=== PATIENT | female | born 1990 | race Caucasian/White ===

== ENCOUNTER 2017-06-05 14:42 | Observation (INO) ==
[2017-06-05] MEDS ORDERED: 0.9 % Sodium Chloride 1,000 ML IVC ONE (15:12)
[2017-06-05] MEDS ORDERED: Ondansetron 4 MG/2 ML VIAL IVP ONE (15:12)
[2017-06-05] MEDS ORDERED: *HR* HYDROmorphone (PF) 1 MG/ML SYRINGE IVP ONE (15:12)
--- NOTE | 2017-06-05 15:15 | Emergency Department Note ---
Disposition Clinical Impression: Nausea & vomiting Qualifiers: Vomiting type: unspecified Vomiting Intractability: unspecified Qualified Code( s): R11.2 - Nausea with vomiting, unspecified UTI (urinary tract infection) Qualifiers: Urinary tract infection type: acute cystitis Hematuria presence: with hematuria Qualified Code(s): N30.01 - Acute cystitis with hematuria Disposition: Admitted As Inpatient Condition: Good Referrals: NONE,PCP [Primary Care Provider] - Forms: ED Satisfaction Letter Time of Disposition: 17:09 Female Urogenital HPI - General Chief complaint: ED Urogenital-Female Stated complaint: poss. kidney stones Time Seen by Provider: 06/05/17 15:11 Source: patient Mode of arrival: ambulatory Limitations: no limitations Nursing Notes Reviewed: Yes Vital Signs Reviewed: Yes - History of Present Illness HPI Narrative: 26-year-old female who was seen here last PM for kidney stones comes in with right flank pain. Patient was noted to have a 2 mm renal stone yesterday. She does have some blood in her urine. States that she's had increasing pain thinks she may be passing the stones. Had nausea vomiting. Pt Subjective Complaint: other (Right flank pain hematuria) Onset (ago): day(s) Radiation: R flank Severity: moderate Quality: aching Duration: constant Improves with: none Worsens with: none Urinary Symptoms: hematuria : no - Related Data Home Medications Medication Instructions Recorded Confirmed Medroxyprogesterone Acetate 10 mg PO DAILY 06/05/17 06/05/17 [Provera] Paroxetine HCl [Paxil] 20 mg PO DAILY 06/05/17 06/05/17 lamoTRIgine [Lamotrigine] 200 mg PO QPM 06/05/17 06/05/17 Previous Rx's Medication Instructions Recorded Naproxen [Naprosyn] 500 mg PO BID PRN #14 tablet 06/04/17 Ondansetron HCl [Zofran] 4 mg PO QID PRN #14 tablet 06/04/17 Allergies Allergy/AdvReac Type Severity Reaction Status Date / Time Cefprozil [From Cefzil] Allergy Rash Verified 06/04/17 13:59 All systems ED: reviewed and negative except as stated. Constitutional: Denies: fever, chills, weakness, weight change Eyes: Denies: eye pain, eye discharge, vision change ENT ED: Denies: ear pain, throat pain, dental pain, hearing loss, epistaxis, congestion, dysphagia Cardiovascular: Denies: chest pain, palpitations, dyspnea on exertion, edema, syncope Respiratory: Denies: cough, dyspnea, wheezes, hemoptysis, stridor Gastrointestinal: Reports: abdominal pain. Denies: nausea, vomiting, diarrhea, constipation, hematemesis, melena, hematochezia Genitourinary: Denies: dysuria, frequency, hematuria, discharge Musculoskeletal: Reports: back pain. 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 - Social History Smoking Status: Current every day smoker Smokeless Tobacco Status: No Alcohol use: Reports: none Drug use: Reports: none Physical Exam - General Limitations: no limitations General appearance: alert - Head Head exam: atraumatic, normocephalic, normal inspection - Eye Eye exam: Present: normal appearance, PERRL, EOMI - ENT ENT exam: normal exam, normal oropharynx, mucous membranes moist - Neck Neck exam: Present: normal inspection, full ROM, trachea midline - Chest Chest inspection: Present: normal inspection, symmetric chest wall rise - Respiratory Respiratory exam: Present: normal lung sounds bilaterally - Cardiovascular Cardiovascular exam: Present: regular rate, normal rhythm, normal heart sounds - Abdominal Exam Abdominal exam: Present: soft, Non-Tender. Absent: tenderness, distention, guarding, rebound, rigidity - Extremities Exam Extremities exam: Present: normal inspection, full ROM. Absent: tenderness, pedal edema - Expanded Lower Extremity Exam Neurovascular/Tendon exam: Absent: motor deficit, sensory deficit, tendon deficit - Back Exam Back exam: Present: normal inspection - Neurological Exam Neurological exam: Present: alert, oriented X3 - Psychiatric Psychiatric exam: Present: normal affect, normal mood - Skin Skin exam: Present: warm, dry, intact, normal color Course - Reevaluation(s) Reevaluation #1: 26-year-old with a history kidney stones or comes in with right flank pain. Patient was seen last PM and actually had a CT scan that showed nephrocalcinosis with the largest on being 2 mm nonobstructing. She also has some red and white cells in her urine. She is in a situation will she is not able to get her medications filled. She's had persistent nausea vomiting. She will require admission. Time: 17:09 - Consultations Consultation #1: Discussed with , will see in consult. Time: 17:08 Consultation #2: Discussed with Kadie Garcia who accepts patient for admission. Time: 17:31 Vital Signs Temperature 98.6 F 06/05/17 15:02 Pulse Rate 86 06/05/17 15:02 Respiratory Rate 16 06/05/17 15:02 Blood Pressure 125/91 06/05/17 15:02 O2 Sat by Pulse Oximetry 100 06/05/17 15:02 Temperature 98.6 F 06/05/17 15:02 Pulse Rate 86 06/05/17 15:02 Respiratory Rate 16 06/05/17 15:02 Blood Pressure 125/91 06/05/17 15:02 O2 Sat by Pulse Oximetry 100 06/05/17 15:02 Oxygen Delivery Oxygen Delivery Room Air Urogenital-Female - Lab Data Lab Results 06/05/17 06/05/17 Range/Units 13:00 13:00 Urine Color [place] A (Yellow) Urine Clarity Turbid A (Clear) Urine pH 6.0 (5.0-8.0) pH Units Ur Specific [place] 1.027 H (1.010-1.025) Urine Protein 30 H (Neg-Trace) mg/dL Urine Glucose (UA) Normal (Normal) mg/dL Urine Ketones Trace H (Negative) mg/dL Urine Blood Large H (Negative) Urine Nitrite Negative (Negative) Urine Bilirubin Moderate H (Negative) Urine Urobilinogen 4.0 H (Normal) mg/dL Ur Leukocyte Esterase Moderate H (Negative) Urine Microscopic RBC TNTC H (0-3) per hpf Urine Microscopic WBC 30-50 H (0-3) per hpf Ur Squamous Epith Cells Many H (None-Few) per lpf Calcium Oxalate Crystal Present Urine Bacteria Few (None-Few) per hpf Hyaline Casts Test Not Performed Ur Culture Indicated? YES A (NO) Urine Test Negative (Negative)
[2017-06-05 15:16] LABS: Bilirubin,Urine Moderate (Negative); Blood,Urine Large (Negative); Clarity,Urine Turbid (Clear); Glucose,Urine (UA) Normal (Normal); Ketones,Urine Trace mg/dL (Negative); Leukocyte Esterase,Urine Moderate (Negative); Nitrite,Urine Negative (Negative); Protein,Urine 30 mg/dL (Neg-Trace); Specific Gravity,Urine 1.027 (1.010-1.025)
[2017-06-05 15:19] LABS: Bacteria,Urine Few per hpf (None-Few); Squamous Epithelial Cell,Urine Many per lpf (None-Few); WBC,Urine 30-50 per hpf (0-3)
[2017-06-05 15:23] LABS: Color,Urine Orange (Yellow)
[2017-06-05 15:30] LABS: RBC,Urine TNTC per hpf (0-3)
[2017-06-05 15:31] LABS: Calcium Oxalate Crystals,Urine Present
[2017-06-05] MEDS ORDERED: Sulfamethoxazole/Trimeth DS 1 EACH TABLET PO ONE (16:47)
[2017-06-05] MEDS ORDERED: Levofloxacin 500 MG/100 ML 500 MG/100 ML BAG IVPB ONE (17:10)
[2017-06-05 18:07] LABS: Basophils # 0.1 K/mcL (0.0-0.2); Eosinophils # 0.3 K/mcL (0.0-0.6); Eosinophils % 4.5 %; Hematocrit 44.5 % (35.3-44.9); Hemoglobin 14.7 g/dL (11.5-15.4); Immature Granulocytes % 1.9 % (0-4); Lymphocytes # 2.8 K/mcL (0.6-4.6); Lymphocytes % 37.7 %; Mean Corpuscular Volume 84.8 fL (83.0-100.0); Mean Platelet Volume 10.8 fL (9.4-12.4); Monocytes # 0.6 K/mcL (0.0-1.3); Monocytes % 7.6 %; Neutrophils # 3.5 K/mcL (1.6-8.9); Platelet Count 239 K/mcL (140-400); Red Blood Count 5.25 M/mcL (3.82-4.97); Red Cell Distribution Width 13.1 % (11.5-14.5); Segmented Neutrophils % 47.3 %
[2017-06-05 18:21] LABS: BUN/Creatinine Ratio 8 (6-26); Blood Urea Nitrogen 6 mg/dL (7-20); Calcium 8.8 mg/dL (8.6-10.8); Carbon Dioxide 18 mEq/L (19-29); Chloride 113 mEq/L (98-109); Glucose 76 mg/dL (70-99); Osmolality,Calculated 288 (280-300); Potassium 4.3 mEq/L (3.5-4.5); Sodium 141 mEq/L (136-145); eGFR For African Americans > 60 (> 60); eGFR For Non-African Americans > 60 (> 60)
[2017-06-05 18:25] LABS: Platelet Estimate Normal (Normal)
[2017-06-05] MEDS ORDERED: Acetaminophen 325 MG TABLET PO PRN (20:18)
[2017-06-05] MEDS: *HR* Morphine 2 MG/ML SYRINGE IVP PRN ×2 (20:43→23:44)
[2017-06-05] MEDS: Ondansetron 4 MG/2 ML VIAL IVP PRN (20:43)
[2017-06-05] MEDS: 0.9 % Sodium Chloride 1,000 ML IVC SCH (21:14)
--- NOTE | 2017-06-05 22:33 | Internal Med History&Physical ---
Date of Encounter: 06/06/17 Time of Encounter: 22:31 Assessment and Plan (1) Renal colic on right side Current visit: Yes Status: Acute (2) Nausea & vomiting Current visit: Yes Status: Acute Qualifiers: Vomiting type: unspecified Vomiting Intractability: unspecified Qualified Code(s): R11.2 - Nausea with vomiting, unspecified (3) UTI (urinary tract infection) Current visit: Yes Status: Acute Qualifiers: Urinary tract infection type: acute cystitis Hematuria presence: with hematuria Qualified Code(s): N30.01 - Acute cystitis with hematuria Internal Medicine - H&P: HPI Chief complaint: Abdominal pain Admitted From: Home Plans for Post Hospital Care: Home History of present illness: Ms. Reeves is a 26-year-old female who was seen here last PM for kidney stones comes in with right flank pain. On noncontrast CT abdomen Patient was noted to have multiple renal his toenails especially a 2 mm nonobstructing renal stone yesterday. She does have some blood her urine. States that her pain is increasing thinks she may be passing the stones. Had nausea vomiting or no fever or law hematuria or any other symptoms. Past Med Surg Social Fam HX - Past Medical History Medical history: no medical history Psychiatric history: anxiety, depression - Past Surgical History Surgical History: appendectomy, cholecystectomy - Social History Smoking Status: Current every day smoker Smokeless Tobacco Status: No Alcohol use: none Drug use: none - Family History Mother Hx Family Endocrine Disorder: Yes (dm) Internal Medicine - H&P: Meds Naproxen [Naprosyn] 500 mg PO BID PRN #14 tablet 06/04/17 [Rx] Ondansetron HCl [Zofran] 4 mg PO QID PRN #14 tablet 06/04/17 [Rx] Medroxyprogesterone Acetate [Provera] 10 mg PO DAILY 06/05/17 [History] Paroxetine HCl [Paxil] 20 mg PO DAILY 06/05/17 [History] lamoTRIgine [Lamotrigine] 200 mg PO QPM 06/05/17 [History] 3 Allergy/AdvReac Type Severity Reaction Status Date / Time Cefprozil [From Cefzil] Allergy Rash Verified 06/04/17 13:59 All Systems PM: A 10-system review of systems was performed and is negative for pertinent findings except as documented above in the HPI. - Constitutional Constitutional: no chills, no fever(s), no night sweats - EENT Eyes: no change in vision, no discharge, no pain, no photophobia Ears: no ear discharge, no ear pain, no tinnitus Nose, mouth and throat: no dysphagia, no nasal discharge, no neck pain, no sore throat - Cardiovascular Cardiovascular ROS IM: no chest pain, no diaphoresis, no dyspnea, no lightheadedness, no palpitations, no syncope - Respiratory Respiratory: no cough, no dyspnea, no wheezing, no excessive phlegm production - Gastrointestinal Gastrointestinal: abdominal pain, nausea, vomiting, no diarrhea, no hematemesis , no hematochezia, no melena - Genitourinary Genitourinary: hematuria, no change in urinary stream, no dysuria, no flank pain - Musculoskeletal Musculoskeletal ROS IM: no numbness, no tingling - Integumentary Integumentary IM: no rash, no unusual bruising - Neurological Neurological ROS: no confusion, no convulsions, no focal weakness, no numbness, no tingling, no tremor(s) - Hematologic/Lymphatic Hematologic/Lymphatic: no easy bruising - Constitutional Vitals: Temp Pulse Resp BP Pulse Ox 98.1 F 73 15 103/65 99 06/05/17 19:20 06/05/17 19:20 06/05/17 19:20 06/05/17 19:20 06/05/17 19:20 - Head Head exam: Present: atraumatic, normocephalic - Eye Eye exam: Present: PERRL, conjuntiva pink, sclera anicteric Pupils: Present: PERRL - Neck Neck exam general surgery: Present: supple, trachea midline. Absent: lymphadenopathy - Respiratory Respiratory exam: Present: CTAB. Absent: accessory muscle use, rales, rhonchi, wheezes - Cardiovascular Cardiovascular exam: Present: RRR, +S1, +S2. Absent: diastolic murmur, gallop, rubs, systolic murmur - GI/Abdominal GI/Abdominal exam: Present: normal bowel sounds, soft, no peritoneal signs. Absent: distended, tenderness - Extremities Exam Extremities exam: Present: warm, radial pulses palpable and symmetrical. Absent : calf tenderness, cyanotic, pedal edema - Neurological Exam Neurological exam: Present: CN II-XII intact, oriented X3, no focal deficits. Absent: pronater drift, facial droop, speech deficit - Skin Skin exam: Present: dry, intact Internal Med - H&P Results - Labs CBC & Chem 7: 06/05/17 17:59 06/05/17 17:59 Labs: Short CBC 06/05/17 Range/Units 17:59 WBC 7.3 (4.3-11.1) K/mcL Hgb 14.7 (11.5-15.4) g/dL Hct 44.5 (35.3-44.9) % Plt Count 239 (140-400) K/mcL Neutrophils # 3.5 (1.6-8.9) K/mcL BMP 06/05/17 17:59 Sodium 141 Potassium 4.3 Chloride 113 H Carbon Dioxide 18 L BUN 6 L Creatinine 0.73 Glucose 76 Calcium 8.8
[2017-06-06] MEDS: 0.9 % Sodium Chloride 1,000 ML IVC SCH ×3 (03:56→16:55)
[2017-06-06] MEDS: Ondansetron 4 MG/2 ML VIAL IVP PRN ×4 (03:58→20:30)
[2017-06-06] MEDS: *HR* Morphine 2 MG/ML SYRINGE IVP PRN (03:58)
--- NOTE | 2017-06-06 08:10 | Internal Med Progress Note ---
Date of Encounter: 06/06/17 Time of Encounter: 07:45 - Assessment and plan (1) Renal colic on right side Current Visit: Yes Status: Acute Assessment and plan: Pt still reports pain to R flank and RLQ, will stop morphine and start Dilaudid due to increased duration of pain relief. Will transition to NSAIDs as pt improves. Urology consulted by ED physician. continue IVF and pain control (2) Nausea & vomiting Current Visit: Yes Status: Acute Assessment and plan: Pt still reports nausea, no vomiting. Continue IVF, monitor labs, antiemetics. Qualifiers: Vomiting type: unspecified Vomiting Intractability: unspecified Qualified Code(s): R11.2 - Nausea with vomiting, unspecified (3) UTI (urinary tract infection) Current Visit: Yes Status: Acute Assessment and plan: Urine turbid with large amount of blood, moderate leukocyte esterase, 30-50 WBC , Calcium oxalate crystal, few bacteria. Culture pending. Pt has received 1 dose of Levaquin IV and one dose of Bactrim in ER. Urology consulted, appreciate their consultation and recommendations. Continue IVF, pain control, and antibiotics. Qualifiers: Urinary tract infection type: acute cystitis Hematuria presence: with hematuria Qualified Code(s): N30.01 - Acute cystitis with hematuria (4) Tobacco use Current Visit: Yes Status: Acute Assessment and plan: Pt has requested a nicotine patch, states that she does not want to stop smoking. Smoking cessation discussed, 3-10 minutes. (5) DVT prophylaxis Current Visit: Yes Status: Acute Assessment and plan: Pt is ambulatory, up to chair and up ad betsy, JAN lópez - Time Spent With Patient less than 15 minutes - Subjective Interval history: Pt was seen and assessed at 0745. She reports continued RLQ and R flank pain, states that morphine is not really helping and that dilaudid didn't really work much better, but lasted longer. She has requested a nicotine patch, but does not want to stop smoking on discharge. Reports no po intake for last 3 days due to pain and nausea, will continue to treat and encourage po intake. - Constitutional Vitals: Temp Pulse Resp BP Pulse Ox 97.4 F L 68 14 107/71 94 06/06/17 07:02 06/06/17 07:02 06/06/17 07:02 06/06/17 07:06/06/17 07:02 General appearance: Present: cooperative, mild distress, A&O X 3, pleasant, answers questions appropriately - Head Head exam: Present: atraumatic, normal inspection, normocephalic - Eye Eye exam: Present: normal appearance, conjuntiva pink, sclera anicteric - Neck Neck exam general surgery: Present: normal inspection, supple, trachea midline. Absent: lymphadenopathy, tenderness - Respiratory Respiratory exam: Present: CTAB. Absent: accessory muscle use, rales, rhonchi, wheezes - Cardiovascular Cardiovascular exam: Present: RRR, +S1, +S2. Absent: diastolic murmur, gallop, rubs, systolic murmur - GI/Abdominal GI/Abdominal exam: Present: normal bowel sounds, soft, no peritoneal signs. Absent: distended, hernia, hepatomegaly, tenderness - Extremities Exam Extremities exam: Present: normal inspection, warm, radial pulses palpable and symmetrical. Absent: calf tenderness, cyanotic, pedal edema - Neurological Exam Neurological exam: Present: alert, oriented X3, no focal deficits. Absent: facial droop, speech deficit - Skin Skin exam: Present: dry, intact, normal color, warm. Absent: rash Internal Medicine: Result - Labs CBC & Chem 7: 06/05/17 17:59 06/05/17 17:59 Labs: Short CBC 06/05/17 Range/Units 17:59 WBC 7.3 (4.3-11.1) K/mcL Hgb 14.7 (11.5-15.4) g/dL Hct 44.5 (35.3-44.9) % Plt Count 239 (140-400) K/mcL Neutrophils # 3.5 (1.6-8.9) K/mcL BMP 06/05/17 17:59 Sodium 141 Potassium 4.3 Chloride 113 H Carbon Dioxide 18 L BUN 6 L Creatinine 0.73 Glucose 76 Calcium 8.8 Consult Discharge Plan - Plan Referrals: NONE,PCP [Primary Care Provider] -
[2017-06-06] MEDS: *HR* HYDROmorphone (PF) 1 MG/ML SYRINGE IVP PRN ×2 (08:45→14:03)
[2017-06-06] MEDS ORDERED: Levofloxacin 500 MG/100 ML 500 MG/100 ML BAG IVPB SCH ×2 (09:00→18:00)
--- NOTE | 2017-06-06 09:32 | Urology - Consult Note ---
Date of Encounter: 06/06/17 Time of Encounter: 09:30 - Assessment and Plan (1) Kidney stones Current Visit: Yes Status: Acute Assessment and plan: Patient stones are not causing her pain at this time. No surgical treatment needed for these. Patient can follow-up with me in 3-4 weeks for discussion of long-term management of recurrent small stones (2) UTI (urinary tract infection) Current Visit: Yes Status: Acute Assessment and plan: Agree with broad-spectrum antibiotics until culture returns. This most likely is the cause of her pain. Qualifiers: Urinary tract infection type: acute cystitis Hematuria presence: with hematuria Qualified Code(s): N30.01 - Acute cystitis with hematuria Urology CN:HPI Consult date: 06/06/17 Reason for consult Urology: Other (kidney stones) Requesting physician: Kierra Machado History of present illness: Rocío is a 26-year-old female with a history of recent trip to the emergency Department secondary to severe bilateral flank discomfort. Patient was found on CT scan to have bilateral punctate renal stones without any ureteral stone. CT scan was personally reviewed by me which I agree with the findings. Patient was found to have a dirty UA. Past Med Surg Social Fam HX - Past Medical History Medical history: no medical history Psychiatric history: anxiety, depression - Past Surgical History Surgical History: appendectomy, cholecystectomy - Social History Smoking Status: Current every day smoker Smokeless Tobacco Status: No Alcohol use: none Drug use: none - Family History Mother Hx Family Endocrine Disorder: Yes (dm) Medications and Allergies Naproxen [Naprosyn] 500 mg PO BID PRN #14 tablet 06/04/17 [Rx] Ondansetron HCl [Zofran] 4 mg PO QID PRN #14 tablet 06/04/17 [Rx] Medroxyprogesterone Acetate [Provera] 10 mg PO DAILY 06/05/17 [History] Paroxetine HCl [Paxil] 20 mg PO DAILY 06/05/17 [History] lamoTRIgine [Lamotrigine] 200 mg PO QPM 06/05/17 [History] 3 Allergy/AdvReac Type Severity Reaction Status Date / Time Cefprozil [From Cefzil] Allergy Rash Verified 06/04/17 13:59 Review of Systems - Constitutional fever(s) (Low-grade) - EENT Nose, mouth and throat: no dizziness - Cardiovascular no chest pain - Respiratory no cough - Gastrointestinal abdominal pain - Musculoskeletal back pain - Integumentary no erythema Exam Initial Vital Signs Temp Pulse Resp BP Pulse Ox 98.6 F 86 16 125/91 100 06/05/17 15:02 06/05/17 15:02 06/05/17 15:02 06/05/17 15:02 06/05/17 15:02 - General physical appearance Present: well developed - Eyes Present: PERRL - ENT Present: normal nares - Neck Present: no masses - Cardiovascular Cardiovascular exam IM: RRR - Abdomen Abdomen: Present: soft - Integumentary Present: no rash - Neurologic Present: normal coordination - Additional Findings Back: Pain with palpation of lower paraspinal muscles Urology Results - Labs 06/05/17 17:59 06/05/17 17:59 Abnormal lab results RBC 5.25 M/mcL (3.82-4.97) H 06/05/17 17:59 Chloride 113 mEq/L (98-109) H 06/05/17 17:59 Carbon Dioxide 18 mEq/L (19-29) L 06/05/17 17:59 BUN 6 mg/dL (7-20) L 06/05/17 17:59 Urine Color [place] (Yellow) A 06/05/17 13:00 Urine Clarity Turbid (Clear) A 06/05/17 13:00 Ur Specific [place] 1.027 (1.010-1.025) H 06/05/17 13:00 Urine Protein 30 mg/dL (Neg-Trace) H 06/05/17 13:00 Urine Ketones Trace mg/dL (Negative) H 06/05/17 13:00 Urine Blood Large (Negative) H 06/05/17 13:00 Urine Bilirubin Moderate (Negative) H 06/05/17 13:00 Urine Urobilinogen 4.0 mg/dL (Normal) H 06/05/17 13:00 Ur Leukocyte Esterase Moderate (Negative) H 06/05/17 13:00 Urine Microscopic RBC TNTC per hpf (0-3) H 06/05/17 13:00 Urine Microscopic WBC 30-50 per hpf (0-3) H 06/05/17 13:00 Ur Squamous Epith Cells Many per lpf (None-Few) H 06/05/17 13:00 Ur Culture Indicated? YES (NO) A 06/05/17 13:00 Diabetes panel 06/05/17 Range/Units 17:59 Sodium 141 (136-145) mEq/L Potassium 4.3 (3.5-4.5) mEq/L Chloride 113 H (98-109) mEq/L Carbon Dioxide 18 L (19-29) mEq/L BUN 6 L (7-20) mg/dL Creatinine 0.73 (0.57-1.11) mg/dL Glucose 76 (70-99) mg/dL Calcium 8.8 (8.6-10.8) mg/dL Calcium panel 06/05/17 Range/Units 17:59 Calcium 8.8 (8.6-10.8) mg/dL Pituitary panel 06/05/17 Range/Units 17:59 Sodium 141 (136-145) mEq/L Potassium 4.3 (3.5-4.5) mEq/L Chloride 113 H (98-109) mEq/L Carbon Dioxide 18 L (19-29) mEq/L BUN 6 L (7-20) mg/dL Creatinine 0.73 (0.57-1.11) mg/dL Glucose 76 (70-99) mg/dL Calcium 8.8 (8.6-10.8) mg/dL Adrenal panel 06/05/17 Range/Units 17:59 Sodium 141 (136-145) mEq/L Potassium 4.3 (3.5-4.5) mEq/L Chloride 113 H (98-109) mEq/L Carbon Dioxide 18 L (19-29) mEq/L BUN 6 L (7-20) mg/dL Creatinine 0.73 (0.57-1.11) mg/dL Glucose 76 (70-99) mg/dL Calcium 8.8 (8.6-10.8) mg/dL All other labs normal. - Imaging CT scan - abdomen: image reviewed CT scan - pelvis: image reviewed Consult Discharge Plan - Plan Referrals: NONE,PCP [Primary Care Provider] -
[2017-06-06] MEDS: *HR* HYDROcodone/Acet 5/325 mg TABLET PO PRN ×2 (17:00→23:12)
[2017-06-06 19:57] LABS: Bilirubin,Urine Negative (Negative); Blood,Urine Moderate (Negative); Clarity,Urine Cloudy (Clear); Color,Urine Yellow (Yellow); Glucose,Urine (UA) Normal (Normal); Ketones,Urine Negative (Negative); Leukocyte Esterase,Urine Trace (Negative); Nitrite,Urine Negative (Negative); Protein,Urine Negative (Neg-Trace); Urobilinogen,Urine Normal (Normal)
[2017-06-06 20:00] LABS: Bacteria,Urine Few per hpf (None-Few); Hyaline Casts,Urine None Seen per lpf (None-Few); Squamous Epithelial Cell,Urine Many per lpf (None-Few)
[2017-06-06] MEDS ORDERED: lamoTRIgine 100 MG TABLET PO SCH (21:00)
[2017-06-06] MEDS: Nicotine 21 MG PATCH.TD24 TD SCH (21:01)
[2017-06-07] MEDS: 0.9 % Sodium Chloride 1,000 ML IVC SCH (03:08)
[2017-06-07 03:33] LABS: Basophils % 0.6 %; Eosinophils # 0.2 K/mcL (0.0-0.6); Eosinophils % 4.3 %; Hematocrit 38.7 % (35.3-44.9); Hemoglobin 12.5 g/dL (11.5-15.4); Immature Granulocytes % 0.2 % (0-4); Immature Platelets 3.7 % (1.1-6.1); Lymphocytes # 2.8 K/mcL (0.6-4.6); Lymphocytes % 51.8 %; Mean Corpuscular HGB Conc 32.3 g/dL (31.6-35.5); Mean Corpuscular Volume 86.6 fL (83.0-100.0); Mean Platelet Volume 10.4 fL (9.4-12.4); Monocytes # 0.3 K/mcL (0.0-1.3); Monocytes % 6.3 %; Platelet Count 232 K/mcL (140-400); Red Blood Count 4.47 M/mcL (3.82-4.97); Red Cell Distribution Width 13.2 % (11.5-14.5); Segmented Neutrophils % 36.8 %
[2017-06-07 03:45] LABS: BUN/Creatinine Ratio 4 (6-26); Calcium 8.7 mg/dL (8.6-10.8); Carbon Dioxide 27 mEq/L (19-29); Chloride 109 mEq/L (98-109); Glucose 86 mg/dL (70-99); Osmolality,Calculated 288 (280-300); Potassium 3.8 mEq/L (3.5-4.5); Sodium 141 mEq/L (136-145); eGFR For African Americans > 60 (> 60); eGFR For Non-African Americans > 60 (> 60)
[2017-06-07 03:46] LABS: Blood Urea Nitrogen 3 mg/dL (7-20)
[2017-06-07 06:58] VITALS: BP 112/74
[2017-06-07] MEDS: *HR* HYDROcodone/Acet 5/325 mg TABLET PO PRN (08:00)
[2017-06-07] MEDS: Nicotine 21 MG PATCH.TD24 TD SCH (08:01)
[2017-06-07] MEDS: Ondansetron 4 MG/2 ML VIAL IVP PRN (08:09)
--- NOTE | 2017-06-07 09:01 | Discharge Summary ---
Date of Encounter: 06/07/17 Time of Encounter: 07:40 - Discharge Diagnosis (1) Renal colic on right side Priority: Primary Status: Acute Comments: Pt with improved R flank pain. states that she feels better today. (2) Nausea & vomiting Priority: Secondary Status: Acute Comments: Pt tells me that she is no longer nauseated and has not vomited. Nurse states that she had to give her antiemetic shortly after I left the room. We are advancing diet to regular. Qualifiers: Vomiting type: unspecified Vomiting Intractability: unspecified Qualified Code(s): R11.2 - Nausea with vomiting, unspecified (3) UTI (urinary tract infection) Priority: Secondary Status: Acute Comments: First culture returned as contaminated with mixed bruno. Patient was already on antibiotics, we did collect another urine, culture was triggered for that one as well. This is most likely the cause of her pain, she will be treated with Levaquin on discharge. Patient is living in a half-way house currently does not have primary care, and will not be staying in the area when she is discharged in 13 days. I encouraged her to attempt to either follow up with the residency clinic or findings seen by in her new area when she is established. Qualifiers: Urinary tract infection type: acute cystitis Hematuria presence: with hematuria Qualified Code(s): N30.01 - Acute cystitis with hematuria (4) Tobacco use Priority: Secondary Status: Acute Comments: Patient has been using a neck pain patch, again today she states that she does not want to stop smoking. Smoking cessation education was provided again. (5) DVT prophylaxis Priority: Secondary Status: Acute Comments: Patient is ambulatory, up to chair ad betsy., JAN lópez. - Discharge Medications Home Medications: Naproxen [Naprosyn] 500 mg PO BID PRN #14 tablet 06/04/17 [Rx] Ondansetron HCl [Zofran] 4 mg PO QID PRN #14 tablet 06/04/17 [Rx] Medroxyprogesterone Acetate [Provera] 10 mg PO DAILY 06/05/17 [History] Paroxetine HCl [Paxil] 20 mg PO DAILY 06/05/17 [History] lamoTRIgine [Lamotrigine] 200 mg PO QPM 06/05/17 [History] Allergies/Adverse Reactions: 3 Allergy/AdvReac Type Severity Reaction Status Date / Time Cefprozil [From Cefzil] Allergy Rash Verified 06/04/17 13:59 Date of admission: 06/05/17 17:52 Primary care physician: PCP NONE Discharging clinician: Kierra Machado Anticipated date of discharge: 06/07/17 - Patient Status Disposition: Home, Self-Care Functional capacity at discharge: independent ambulation Overall status at discharge: patient is progressing back to baseline - Discharge Instructions Follow Up With: NONE,PCP [Primary Care Provider] - Additional Instructions: Follow up with a primary care provider as soon as you can establish with one in [place]. Return to the ER as needed for any other problems or concerns or if your symptoms return. Resume your normal activities as tolerated and start your home medications again. - Diet and Activity Activity: increase activity as tolerated Diet: advance to your usual diet Hospital course: Ms. Reeves is a 26 year old female with no significant medical history the tobacco abuse who presented to the emergency department on 06/05/17 with complaint of kidney stones and right flank pain. Noncontrast CT in the emergency department showed multiple renal stones, especially 2 mm nonobstructing renal stone. She has had nausea and vomiting with fever law hematuria. She was admitted for observation and pain control. Patient does not have a white count or fever, no change in GFR creatinine. Urology was consulted and saw patient, stones are nonobstructing and not likely the cause of her pain. On physical exam she did report CVA tenderness and tenderness with mild palpation to mid back. The initial urine that was collected and high specific gravity large amount of blood moderate leukocyte esterase and nitrites 30-50 white cells and few bacteria. The final culture for that urine indicated there was mixed growth and should be repeated. Patient had already been started on antibiotics and second urine was collected and sent. Still has a moderate amount of blood trace of leukocyte esterase and 5-15 white cells, few bacteria and the culture is still pending. This morning she denies nausea or vomiting and states that she feels better, pain is under control. She was given 1 dose of Zofran after I saw her. She is advance her diet and tolerated it well. She has remained afebrile with no leukocytosis and no tachycardia, she has improved labs are within normal limits. Patient is ready for discharge. Time spent discussing smoking cessation with patient: 3 to 10 minutes - Time Spent with Patient Total time spent providing and/or coordinating discharge services: Less than 30 minutes - Constitutional Vitals: Temp Pulse Resp BP Pulse Ox 98.3 F 74 17 112/74 95 06/07/17 06:56 06/07/17 06:56 06/07/17 06:56 06/07/17 06:56 06/07/17 06:56 General appearance: Present: cooperative, mild distress, A&O X 3, pleasant, no acute distress, answers questions appropriately - Head Head exam: Present: atraumatic, normal inspection, normocephalic - Eye Eye exam: Present: normal appearance, conjuntiva pink, sclera anicteric - ENT ENT exam: Present: mucous membranes moist, normal exam, normal external ear exam - Neck Neck exam general surgery: Present: normal inspection, supple, trachea midline. Absent: lymphadenopathy, tenderness - Respiratory Respiratory exam: Present: CTAB. Absent: accessory muscle use, rales, rhonchi, wheezes - Cardiovascular Cardiovascular exam: Present: RRR, +S1, +S2. Absent: diastolic murmur, gallop, rubs, systolic murmur - GI/Abdominal GI/Abdominal exam: Present: normal bowel sounds, soft. Absent: distended, guarding, tenderness - Extremities Exam Extremities exam: Present: normal capillary refill, normal inspection, warm, radial pulses palpable and symmetrical. Absent: calf tenderness, cyanotic, pedal edema, tenderness - Neurological Exam Neurological exam: Present: alert, normal gait, oriented X3. Absent: facial droop, speech deficit - Skin Skin exam: Present: dry, intact, normal color, warm. Absent: rash
== END 2017-06-07 11:09 | disposition home or self-care (01) ==
LOC: EMEROO 14:42 → 3BNU 14:42
PROVIDERS: ADMIT Nurse Practitioner Acute Care; ATTEND Registered Nurse